=== PATIENT | male | born 1990 | race Caucasian/White ===

== ENCOUNTER 2019-05-02 05:08 | Emergency (ER) | payer BC, OTHER ==
[~2019-05-02] VITALS: Ht 180.3 cm; Wt 136.1 kg
[~2019-05-02 05:08] MED LIST: CEPH500 PO; CODACE30 PO; IBUP400 PO; KETO10 PO; OXYACE5T PO; PROM25 PO; Percocet 5-3251 EACH PO; TAMS.4ER PO
[2019-05-02] MEDS ORDERED: BUPR75 (06:00)
[2019-05-02] MEDS ORDERED: Robaxin-750750 MG PO (06:36)
[2019-05-02] MEDS ORDERED: Acetaminophen-1 EAC1 PO (06:36)
== END 2019-05-02 07:00 | disposition home or self-care (01) ==
LOC: ER 05:08
DX: S16.1XXA Strain of muscle, fascia and tendon at neck level, initial encounter (principal); M62.838 Other muscle spasm; Z87.442 Personal history of urinary calculi; X58.XXXA Exposure to other specified factors, initial encounter
CPT/HCPCS: 96372; 99283-25; J1885

== ENCOUNTER → 2023-08-14 | Outpatient (CLI) | payer BC ==
[~2023-08-14] MED LIST changes: +Acetaminophen-1 EAC1 PO; +BUPR75; +Flomax0.4 MG PO; +HYDR1TAB94 PO; +ONDA4ODT MM; +Robaxin-750750 MG PO
== END | disposition home or self-care (01) ==
LOC: LAB SHORT 11:05 → LAB 11:05
DX: R31.0 Gross hematuria (principal)
CPT/HCPCS: 87086